=== PATIENT | male | born 1960 | race Caucasian/White ===

== ENCOUNTER → 2017-12-06 | Outpatient (CLI) | payer OTHER ==
[~2017-12-06] MED LIST: ALEVE220 MG PO; AMBIEN 5 MG TABL5 M1 PO; CARISOPRODOL 3350 MG PO; CELEBREX 200 M200 M1 PO; KETOROLAC TROME10 MG PO; LISINOPRIL-HCT1 EAC2 PO; LOPRESSOR50 PO; METFORMIN HCL500 MG PO; NORTRIPTYLINE H25 M3 PO; OXYCONTIN20 M1 PO; PERCOCET 10-321 EACH PO; PERCOCET 7.5-31 EACH PO; PREDNISONE 20 M20 M1 PO; ZOCOR20 MG PO
--- NOTE | 2017-12-15 09:00 | PAINCON ---
[address] [address] PAIN MANAGEMENT CONSULTATION Name: JOE REZA Room: [facility]#: [id number] Admission: 12/06/17 Attend Phys: Jason Guzman DO Discharge: Date of : 62 Report #: [id number] THIS REPORT FOR: //name// CC: Mikhail Guzman DATE OF SERVICE: 12/06/2017 REFERRING PHYSICIAN: Mikhail Littlejohn MD CHIEF COMPLAINT: Low back pain, bilateral lower extremity pain and paresthesias. HISTORY OF PRESENT ILLNESS: As you know, the patient is a very pleasant 57-year-old male who returns today in followup visit for evaluation of surgical incisions. The patient has undergone permanent implantation of a spinal cord stimulator with Dr. Quiles last week. He returns today for evaluation of the surgery sites. He states he has had no problems with the surgery site to date. He has done very well. He has been able to go about most activities of daily living. He returns for first evaluation of the incisions, plan to return to work next week after his second incision evaluation. The patient is placing pain score today 1/10, states the programming is working well for pain control. ALLERGIES: PENICILLIN. CURRENT MEDICATIONS: Soma 350 mg 3 times a day, lisinopril/hydrochlorothiazide 20/25 mg once a day, metformin 500 mg 2 tabs twice a day, metoprolol 50 mg b.i.d., naproxen sodium 220 mg every 12 hours, simvastatin 20 mg per day, zolpidem 5 mg 2 tabs p.o. at bedtime, and oxycodone 20 mg every 6 hours p.r.n. SOCIAL HISTORY: The patient denies tobacco, alcohol, IV or illicit drug use. He is working, not receiving workmen's compensation. He is unaccompanied today. IMAGING: No new imaging available. PHYSICAL EXAMINATION: VITAL SIGNS: Blood pressure 148/82, pulse 100, respiratory rate 16 and unlabored, the patient is 97% on room air, current temperature 98.7 degrees Fahrenheit, height 6 feet 1 inch tall, weight 259.6 pounds, and BMI calculated 34.1. GENERAL: Well-developed, well-nourished, well-hydrated, exogenously obese 57-year-old male, appearing stated age, pain is rated today at approximately 1/10. HEENT: Normocephalic, atraumatic. Pupils are equal, round, [place] [address] PAIN MANAGEMENT CONSULTATION Name: JOE REZA Room: [facility]#: [id number] Admission: 12/06/17 Attend Phys: Jason Guzman DO Discharge: Date of : 62 Report #: [id number] EXTREMITIES: Show no clubbing, no cyanosis, and no edema. MUSCULOSKELETAL: Seated straight leg raising negative, supine straight leg raising remains positive. Tarik's test negative. Modified Gaenslen's positive for axial low back pain. Gait appears normal. There are 2 surgical incisions, one at approximately the T12 level, which appears to be healing well, there is no erythema and no drainage, the incision is clean, dry and intact. There is also an incision over the right buttock area, well healing, no erythema, and no drainage. Scabbing is normal. ASSESSMENT: 1. Symptomatic lumbar radiculopathy. 2. Post laminectomy syndrome. 3. Neural foraminal stenosis of the lumbar spine. 4. Lumbosacral spondylosis with radiculopathy. 5. Chronic intractable pain. PLAN: 1. The patient returns today in followup visit for the evaluation of permanent spinal cord stimulator implantation surgical incisions. The patient appears to be healing well. Both incisions look clean, dry and healing appropriately. Initial surgical bandages have been changed. The patient will keep the area bandaged as directed today until our next week appointment. He is advised to watch for any changes in the incision sites, if he notes any increased erythema, drainage around the area site, he is to contact our clinic. Otherwise, we will see him back in 1 week to further evaluate these incisions, if they look good at that point, I would recommend the patient return to light activity for the next 2 weeks and then to return to normal activity following. We will see the patient back in followup visit 1 week. 2. No medication changes were made at today's visit. <ELECTRONICALLY SIGNED> By: Jason Guzman DO 12/15/17 0900 [id number] Guzman DO /nt
== END ==
LOC: M.PC 01:18
DX: M48.061 Spinal stenosis, lumbar region without neurogenic claudication (principal); M96.1 Postlaminectomy syndrome, not elsewhere classified; M47.27 Other spondylosis with radiculopathy, lumbosacral region; G89.29 Other chronic pain

== ENCOUNTER → 2017-12-13 | Outpatient (CLI) | payer OTHER ==
--- NOTE | 2017-12-15 09:00 | PAINCON ---
[address] [address] PAIN MANAGEMENT CONSULTATION Name: JOE REZA Room: [facility]#: [id number] Admission: 12/13/17 Attend Phys: Jason Guzman DO Discharge: Date of : 62 Report #: [id number] THIS REPORT FOR: //name// CC: Mikhail Guzman DATE OF SERVICE: 12/13/2017 CHIEF COMPLAINT: Low back pain, bilateral lower extremity pain and paresthesia. HISTORY OF PRESENT ILLNESS: As you know, the patient is a very pleasant 57-year-old male who returns today in followup visit for the second incision check from his recent implantation of a permanent spinal cord stimulator. The patient indicates pain today at a level of 1-2/10. He is very pleased with response to the spinal cord stimulator at this time. He has returned for evaluation of his surgical incisions. ALLERGIES: PENICILLIN. CURRENT MEDICATIONS: Soma, lisinopril/hydrochlorothiazide, metformin, metoprolol, naproxen, simvastatin, zolpidem, oxycodone. SOCIAL HISTORY: The patient denies tobacco, alcohol, IV or illicit drug use. He is working, not receiving workmen's compensation, unaccompanied today. IMAGING: No new imaging available. PHYSICAL EXAMINATION: VITAL SIGNS: Blood pressure 134/87, pulse is 89, respiratory rate 16, unlabored. The patient is 96% on room air, current temperature 98.7 degrees Fahrenheit, height 6 feet 1 inch tall, weight 265 pounds, BMI calculated 36. GENERAL: Well-developed, well-nourished, well-hydrated, exogenously obese 57-year-old male, appears stated age, placing current pain score 1-2/10. HEENT: Normocephalic, atraumatic. Pupils are equal, round, reactive to light. EXTREMITIES: Show no clubbing, no cyanosis, no edema. MUSCULOSKELETAL: Seated straight leg raising negative. Supine straight leg raising remains positive. JULIAN test negative. Modified Gaenslen's positive for axial low back pain. Well healed surgical scars over the thoracolumbar area and the right upper buttock area. ASSESSMENT: 1. Symptomatic lumbar radiculopathy. 2. Post-laminectomy syndrome. 3. Neural foraminal stenosis of the lumbar spine. 4. Lumbosacral spondylosis [place] [address] PAIN MANAGEMENT CONSULTATION Name: JOE REZA Zackary Room: [facility]#: [id number] Admission: 12/13/17 Attend Phys: Jason Guzman DO Discharge: Date of : 62 Report #: [id number] 5. Chronic intractable pain. PLAN: 1. The patient returns today in followup visit for evaluation of his post-surgical wounds. His wounds appear to be healing well. I recommend the patient monitor the incisions over the next week or two, but appear that the incisions are healing perfectly. At this point, the patient does not need to follow up with our clinic for further evaluation of the surgical incisions. 2. The patient was advised to begin weaning off of opioid medications. He is reporting pain score 1-2/10. He is receiving excellent benefit with the spinal cord stimulator adjustments and programming has been made and the patient will begin to reap the benefits of this programming in the next 24-48 hours. Recommend weaning off of opioids at his earliest convenience. I do not recommend continuation of that therapy if it is not necessary. 3. We wish the patient good luck with the spinal cord stimulating device. We are pleased to see he has done well with the device itself. He can follow up with his PCP as necessary for further adjustments in his therapy, ultimately coming off the medications when possible. <ELECTRONICALLY SIGNED> By: Jason Guzman DO 12/15/17 09 19 [id number] Guzman DO /nt
== END ==
LOC: M.PC 00:57
DX: M96.1 Postlaminectomy syndrome, not elsewhere classified (principal); M48.061 Spinal stenosis, lumbar region without neurogenic claudication; M79.604 Pain in right leg; M47.27 Other spondylosis with radiculopathy, lumbosacral region; G89.29 Other chronic pain